=== PATIENT | male | born 1975 | race Caucasian/White ===

== ENCOUNTER 2019-06-04 11:05 | Emergency (ER) | payer MEDICAID ==
[~2019-06-04] VITALS: Ht 177.8 cm; Wt 91.0 kg
[2019-06-04] MEDS ORDERED: KETOROLAC 30MG/ML VIAL IV ONE (13:00)
[2019-06-04 13:03] LABS: BASOPHILS % 0.2 % (0.0-2.0); EOSINOPHILS % 0.7 % (0.0-5.0); HEMATOCRIT. 47.7 % (42.0-52.0); HEMOGLOBIN. 16.7 g/dL (14.0-18.0); LYMPHOCYTES % 18.9 % (20.0-50.0); MEAN CORPUSCULAR HEMOGLOBIN 33.2 pg (28.0-32.0); MEAN CORPUSCULAR VOLUME 94.7 fL (80.0-94.0); MEAN PLATELET VOLUME 11.4 fl (7.4-10.4); MONOCYTES % 6.3 % (2.0-8.0); NEUTROPHILS % 73.9 % (40.0-76.0); PLATELET 157 x1000/uL (130-400); RED BLOOD CELL COUNT 5.04 mill/uL (4.7-6.1); RED CELL DISTRIBUTION WIDTH 13.7 % (11.6-14.6)
[2019-06-04 13:06] LABS: CHLORIDE 104 mEq/L (98-107)
[2019-06-04 17:30] VITALS: BP 129/84
== END 2019-06-04 17:39 | disposition home or self-care (01) ==
LOC: ER 11:36
DX: R07.89 Other chest pain (principal); F41.9 Anxiety disorder, unspecified; I10 Essential (primary) hypertension; R61 Generalized hyperhidrosis; Z86.79 Personal history of other diseases of the circulatory system
CPT/HCPCS: 36415; 71045; 80053; 83690; 83880; 84484; 85025; 93005; 96374; 99284; J1885

== ENCOUNTER 2021-03-13 10:03 | Emergency (ER) | payer SELFPAY ==
[~2021-03-13] VITALS: Ht 177.8 cm; Wt 100.0 kg
[2021-03-13 10:34] VITALS: BP 156/91
== END 2021-03-13 11:29 | disposition home or self-care (01) ==
LOC: ER 10:03
DX: R06.02 Shortness of breath (principal); F41.9 Anxiety disorder, unspecified; I10 Essential (primary) hypertension; I45.10 Unspecified right bundle-branch block
CPT/HCPCS: 71045; 93005; 99283

== ENCOUNTER 2024-06-25 20:17 | Emergency (ER) | payer MEDICAID | END 2024-06-25 21:07 | disposition left against medical advice (07) | LOC: ER 20:17 | DX: Z53.21 Procedure and treatment not carried out due to patient leaving prior to being seen by health care provider (principal) ==